=== PATIENT | male | born 1970 | race Hispanic/Latino ===

== ENCOUNTER → 2024-03-21 | Day surgery (SDC) | payer OTHER ==
[~2024-03-21] MED LIST: LIDOCAINE HCL 2% LOCAL INJ 5 ML SDV VIAL INJ ONE; MIDAZOLAM HCL 2 MG/2 ML VIAL ONE; PROPOFOL IV EMULSION 10 MG/ML 20 ML VIAL ONE
[2024-03-21] MEDS: LACTATED RINGER'S 1,000 ML ONE (13:58)
[2024-03-21 16:35] VITALS: BP 130/89; PULSE 72; RESP 16; O2SAT 98
== END | disposition home or self-care (01) ==
LOC: OR 12:45
PROVIDERS: ATTEND Internal Medicine Gastroenterology
DX: Z12.11 Encounter for screening for malignant neoplasm of colon (principal); K62.5 Hemorrhage of anus and rectum; K64.1 Second degree hemorrhoids; K06.8 Other specified disorders of gingiva and edentulous alveolar ridge; Z01.810 Encounter for preprocedural cardiovascular examination; Z79.1 Long term (current) use of non-steroidal anti-inflammatories (NSAID); Z68.33 Body mass index [BMI] 33.0-33.9, adult
CPT/HCPCS: 45378; 93005; J2001; J2250; J2704; J7121